=== PATIENT | male | born 1965 | race Two or more races ===

== ENCOUNTER 2017-08-21 05:49 | Inpatient (IN) | payer OTHER ==
[~2017-08-21] VITALS: Ht 165.1 cm; Wt 102.1 kg
[2017-08-21] VITALS (11 sets, daily range): BP systolic 97–133; BP diastolic 64–87
[~2017-08-21 05:49] MED LIST: NKM; ceFAZolin sod 2 GM in D5W 110 ML IVPB ONE
[2017-08-21] MEDS ORDERED: EPINEPHrine 1mg/1ml Amp ONE (07:08)
[2017-08-21] MEDS ORDERED: Bupivacaine 0.5% Inj 30 ml vial INJ ONE (07:09)
[2017-08-21] MEDS ORDERED: Thrombin 5000 units spray kit TOPIC ONE (07:09)
[2017-08-21] MEDS ORDERED: Thrombin 5000 units TOPIC ONE (07:09)
[2017-08-21] MEDS ORDERED: Gelfoam Absorbable 1gm powder pkt TOPIC ONE (07:09)
[2017-08-21] MEDS ORDERED: Bacitracin 50000 Units Vial ONE (07:10)
[2017-08-21] MEDS ORDERED: Midazolam 2mg/2ml Inj ONE (07:24)
[2017-08-21] MEDS ORDERED: fentaNYL 100 mcg/2 mL IV ONE (07:24)
[2017-08-21] MEDS ORDERED: Zemuron 50mg/5ml Inj IV ONE (07:38)
[2017-08-21] MEDS ORDERED: Sterile Water Irrig 1000ml IRRIG ONE (08:00)
[2017-08-21] MEDS ORDERED: NS Irrig 1000ml ONE (08:00)
[2017-08-21] MEDS ORDERED: Propofol 1,000mg/ 100ml btl IV ONE (08:00)
[2017-08-21] MEDS ORDERED: LR 1000ml 1,000 ML IVLG SCH (08:11)
--- NOTE | 2017-08-21 08:11 | Pre-Procedure Note/Attestation ---
Pre-Procedure Note/Attestation Complete Prior to Procedure Procedure Narrative: acdf c67 with uncovertebrectomy Indications for Procedure Pre-Operative Diagnosis: dicoscopathy and radiculopathy c67 Attestation I attest that I discussed the nature of the procedure; its benefits; risks and complications; and alternatives (and the risks and benefits of such alternatives ), prior to the procedure, with the patient (or the patient's legal lifeline representatives). I attest that, if there was a reasonable possibility of needing a blood transfusion, the patient (or the patient's legal lifeline representatives) was given the [facility] standardized written summary, pursuant to the Francisco Kori Blood Safety Act ([place] Health and Safety Code # 1645, as amended). I attest that I re-evaluated the patient just prior to the surgery and that there has been no change in the patient's H&P, except as documented below: CHEN CHOUDHURY August 21, 2017 08:11
[2017-08-21] MEDS ORDERED: Meperidine 50mg/ml Inj(FOR RIGORS ONLY) IVP PRN (08:15)
[2017-08-21] MEDS ORDERED: LR 1000ml 1,000 ML IV SCH (08:15)
[2017-08-21] MEDS ORDERED: LORazepam Inj 2mg/ml 1ml IV PRN (08:15)
[2017-08-21] MEDS ORDERED: DiphenhydrAMINE 50mg/ml Inj IVP PRN (08:15)
--- NOTE | 2017-08-21 10:19 | Brief Operative Note ---
Immediate Post Operative Note Operative Note Pre-op Diagnosis: dicoscopathy and radiculopathy c67 Procedure: c67 acdf, partial uncovertebrectomy L Post-op Diagnosis: same as pre-op Findings: consistent w/pre-op dx studies Surgeon: kaden Surgical Sales Representative: mary Anesthesiologist: jo-ann Anesthesia: general Specimen: yes - disc Complications: none Condition: stable Fluids: 800cc Estimated Blood Loss: none Drains: none Implant(s) used?: Yes - spinal elements crystal cage and NEXXT spine plate CHEN CHOUDHURY August 21, 2017 10:19
[2017-08-21] MEDS ORDERED: Metoclopramide 10mg/2ml Inj IVP PRN (10:30)
[2017-08-21] MEDS ORDERED: HYDROcodone/Acetamin 7.5/325 tab ORAL PRN ×2 (10:30)
[2017-08-21] MEDS ORDERED: Norco 5mg/325mg tab ORAL PRN (10:30)
--- NOTE | 2017-08-21 10:46 | Immediate Post-Op Evaluation ---
Immediate Post-Op Evalulation Immediate Post-Op Evalulation Procedure: ACDF C6-7 Date of Evaluation: August 21, 2017 Time of Evaluation: 10:50 IV Fluids: 800 Estimated Blood Loss: 25 Blood Pressure Systolic: 97 Blood Pressure Diastolic: 68 Pulse Rate: 89 Respiratory Rate: 14 O2 Sat by Pulse Oximetry: 97 Temperature (Fahrenheit): 98.8 Pain Score (1-10): 0 Nausea: No Vomiting: No Patient Status: reacts, patent, extubated, none Hydration Status: adequate Drug: Ancef Given Within 1 Hr of Incision: Yes Time Given: 08:20 rFancisco Adair MD August 21, 2017 10:46
--- NOTE | 2017-08-21 10:48 | Anethesia Preoperative Eval ---
Anesthesia Pre-op PMH/ROS General Date of Evaluation: August 21, 2017 Time of Evaluation: 08:05 Anesthesiologist: Mana ASA Score: ASA 2 Mallampati Score Class I : Soft palate, uvula, fauces, pillars visible Class II: Soft palate, uvula, fauces visible Class III: Soft palate, base of uvula visible Class IV: Only hard plate visible Mallampati Classification: Class II Surgeon: Heather Diagnosis: Cervical disc degeneration Surgical Procedure: ACDF C6-7 Family History: no anesthesia problems Allergies: Coded Allergies: No Known Allergies (Unverified , 08/20/17) Medications: see eMAR Past Medical History Cardiovascular: Denies: HTN, CAD, AK, valve dz, arrhythmia, other Pulmonary: Denies: asthma, COPD, MABEL, other Gastrointestinal/Genitourinary: Denies: GERD, CRI, ESRD, other Neurologic/Psychiatric: Denies: dementia, CVA, depression/anxiety, TIA, other Endocrine: Denies: DM, hypothyroidism, steroids, other HEENT: Denies: cataract (L), cataract (R), glaucoma, CHEVAK (L), CHEVAK (R), other Hematology/Immune: Denies: anemia, DVT, bleeding disorder, other Musculoskeletal/Integumentary: Denies: OA, RA, DJD, DDD, edema, other Other: obesity PMH Narrative: Mild obesity PSxH Narrative: Bilateral shoulder surgery, lumbar surgery Anesthesia Pre-op Phys. Exam Physician Exam Last Vital Signs Date Time Temp Pulse Resp B/P (MAP) Pulse Ox O2 Delivery O2 Flow Rate FiO2 08/21/17 07:11 98.6 98 20 133/87 98 Room Air 98.6 Constitutional: NAD Neurologic: CN 2-12 intact Cardiovascular: RRR, no M/R/G Respiratory: CTA Gastrointestinal: S/NT/ND Airway Exam Mallampati Score: Class III MO: full ROM: full Teeth: missing Anesthesia Pre-op A/P Labs WNL Studies Pre-op Studies: EKG - NSR, CXR - NAD Risk Assessment & Plan Assessment: Mildly obese male for ACDF Plan: GETA, [place]line Status Change Before Surgery: No Pre-Antibiotics Drug: Ancef Given Within 1 Hr of Incision: Yes Time Given: 08:40 Francisco Adair MD August 21, 2017 10:48
[2017-08-21] MEDS: Meperidine 50mg/ml Inj(FOR RIGORS ONLY) IVP SCH ×2 (11:42→13:35)
--- NOTE | 2017-08-21 15:27 | History and Physical ---
History of Present Illness General Date patient seen: August 21, 2017 Present Illness HPI 52 year old male with dicoscopathy and radiculopathy c67 is admitted for c67 acdf, partial vertebrectomy. Post-operatively pt is admitted to surgical floor for post-op care. Allergies: Coded Allergies: No Known Allergies (Unverified , 08/20/17) Medication History Scheduled No Known Medications* (NKM - No Known Medications*), 0 ., (Reported) Patient History Healthcare decision maker N Resuscitation status Full Code Advanced Directive on File No Review of Systems All Other Systems: negative except mentioned in HPI Physical Exam General Appearance: WD/WN Lines, tubes and drains: peripheral HEENT: normocephalic, anicteric Neck: non-tender, normal alignment Respiratory/Chest: chest wall non-tender, lungs clear Breasts: no masses Cardiovascular/Chest: normal peripheral pulses Abdomen: non tender Genitourinary/Rectal: normal genital exam Last 24 Hour Vital Signs Date Time Temp Pulse Resp B/P (MAP) Pulse Ox O2 Delivery O2 Flow Rate FiO2 08/21/17 13:36 97.9 08/21/17 12:20 90 15 120/83 97 Nasal Cannula 3.0 08/21/17 12:08 97.9 92 17 127/84 99 Nasal Cannula 3.0 97.9 08/21/17 11:45 94 15 125/86 99 Nasal Cannula 3.0 08/21/17 11:42 97.5 08/21/17 11:30 89 17 120/83 99 Nasal Cannula 3.0 08/21/17 11:20 95 14 122/85 99 Nasal Cannula 3.0 08/21/17 11:10 88 17 103/64 99 Nasal Cannula 3.0 08/21/17 11:00 90 15 100/66 99 Simple Mask 6.0 08/21/17 10:50 96 16 99/65 100 Simple Mask 6.0 08/21/17 10:46 209.8 89 14 97 08/21/17 10:40 97.8 89 14 97/68 97 Simple Mask 6.0 97.8 08/21/17 07:11 98.6 98 20 133/87 98 Room Air 98.6 Height (Feet): 5 Height (Inches): 5.00 Weight (Pounds): 225 Medications Current Medications Medications (Trade) Dose Ordered Sig/Chana Route PRN Reason Start Time Stop Time Status Last Admin Dose Admin Acetaminophen (Tylenol) 650 mg Q4H PRN ORAL headache or temp>101 08/21/17 10:30 09/20/17 10:29 Acetaminophen/ Hydrocodone Bitart ([place] 5/325) 1 tab Q3H PRN ORAL pain score 1-3 08/21/17 10:30 08/28/17 10:29 Acetaminophen/ Hydrocodone Bitart ([place] 7.5/325) 1 tab Q3H PRN ORAL pain score 4-6 08/21/17 10:30 08/28/17 10:29 Acetaminophen/ Hydrocodone Bitart ([place] 7.5/325) 2 tab Q3H PRN ORAL pain scale 7-10 08/21/17 10:30 08/28/17 10:29 Cefazolin Sodium 1 gm/Dextrose 55 ml @ 110 mls/hr EVERY 8 HOURS IV 08/21/17 16:00 08/22/17 06:29 Dextrose/Sodium Chloride 1,000 ml @ 100 mls/hr Q10H IV 08/21/17 14:30 09/20/17 14:29 Hydromorphone HCl (Dilaudid) 2 mg Q3H PRN SUBQ Severe Pain (Pain Scale 7-10) 08/21/17 10:30 08/28/17 10:29 Hydromorphone HCl (Dilaudid) 2 mg Q4H PRN SUBQ Moderate Pain (Pain Scale 4-6) 08/21/17 10:30 08/28/17 10:29 Metoclopramide HCl (Reglan) 10 mg Q6H PRN IVP Nausea & Vomiting 08/21/17 10:30 09/20/17 10:29 Temazepam (Restoril) 15 mg HSPRN PRN ORAL Insomnia 08/21/17 10:30 08/28/17 10:29 Assessment/Plan Problem List: (1) Disorder of intervertebral disc at C6-C7 level ICD Codes: M50.923 - Unspecified cervical disc disorder at C6-C7 level SNOMED: [id number] Assessment/Plan post op care symptomatic treatment pain management dvt prophylaxis Aida Contreras MD August 21, 2017 15:27
[2017-08-21] MEDS: D5 1/2NS 1,000 ML IV SCH (15:51)
[2017-08-21] MEDS: ceFAZolin sod 1 GM in D5W 55 ML IV SCH ×2 (16:57→21:41)
[2017-08-21] MEDS ORDERED: Tamsulosin 0.4mg cap ORAL SCH (18:30)
--- NOTE | 2017-08-21 18:30 | Operative Note - Dictated ---
DATE OF OPERATION: 08/21/2017 SURGEON: Don Romero M.D. BRAILLE CODER: Humberto Mosqueda M.D. ANESTHESIA: General endotracheal anesthesia. ANESTHESIOLOGIST: Francisco Adair M.D. PREOPERATIVE DIAGNOSIS: Cervical discopathy, C6-C7, with severe foraminal stenosis, left-sided, C6-C7. POSTOPERATIVE DIAGNOSIS: Cervical discopathy, C6-C7, with severe foraminal stenosis, left-sided, C6-C7. PROCEDURE: 1. Wide and radical discectomy and decompression of neural elements, C6-C7. 2. Partial uncal vertebrectomy, left side, C6-C7. 3. Interbody fusion using a Spinal Elements PEEK cage, Bacterin bone, local autograft, and [place] putty. 4. Anterior instrumentation using Nexxt Spine plate, 20 mm. 5. Use of operating microscope. 6. Neurodiagnostic monitoring. 7. Use of fluoroscopy for localization purposes as well as placement of hardware. RISK NOTE: The patient was explained in detail of the risks and benefits of surgery to include, but not be limited to those of bleeding, infection, damage to nerves, vessels, and tendons, anesthetic risk, allergic reaction, aspiration, and possibly . The patient understood, wished to proceed. INDICATIONS: The patient is a very pleasant gentleman with fairly significant and intractable pain in neck, radiating down the left upper extremity. He did get a good overall relief following pain management. However, the pain would consistently come back. For that reason, surgical intervention was recommended based on radiographic findings. OPERATIVE PROCEDURE IN DETAIL: The patient was taken to the operative suite after positive identification was made. He was positioned supine onto a radiolucent table. After general anesthesia was induced and the patient was intubated, Fletcher catheter was placed, arms were tucked, and a bolster placed under his neck. The chin was strapped back. The neck was prepped and draped in the usual sterile fashion. Under fluoroscopic guidance, the C6-C7 level was identified. A 1-1/2 inch incision was carried out on the right side in a transverse fashion after the patient received 4 mL of Marcaine with epinephrine. At this point, a 15 scalpel was used to incise the skin. The platysma was split perpendicular to the fibers. An interval medial to the sternocleidomastoid was developed, and blunt dissection was carried out to the prevertebral fascia. A needle was placed at the C6-C7 level and radiographically confirmed using fluoroscope. At this juncture, Edwardo posts were placed at C6 and C7. The disk was incised and gentle disc distraction was obtained. Then, operating microscope was brought into place and wide and radical diskectomy was performed. Endplate preparation was achieved. The dissection was carried out all the way to the posterior osteophytes. Posterior osteophytes were resected. Attention was then turned to the left lateral recess and with the use of a high-speed drill, uncal vertebrectomy was performed down to the area of the neural foramen. The posterior annulus was removed and the nerve root was freed. Dissection was carried out just to the extreme lip of the uncovertebral joints. The [place] #2 punch was then utilized to remove the posterior anulus and posterior longitudinal ligament. The spinal cord was exposed and noted to be patent. Copious irrigation was performed. An 8 mm interbody graft was chosen as it had perfect apposition. It was centrally packed with Bacterin bone, which had been soaking in antibiotic solution. Once the PEEK interbody device was inserted, the appropriate size plate was chosen. The anterior vertebral body was denuded off additional soft tissue. The anterior spurs were removed. A high-speed drill was used to decorticate the anterior cortex and the appropriate size 14 mm screws were then serially placed fluoroscopically being checked and noted to be in good position. AP and lateral positioning demonstrated excellent bony apposition under microscopic visualization. Meticulous hemostasis was achieved. A 1.5 mL of [place] putty was then placed into the periphery of the PEEK cage. At this point, decision was made to close. Platysma was repaired using 3-0 Vicryl. Subcutaneous closure using 4-0 Vicryl. Dermabond was applied and a sterile dressing. At the time of this dictation, the patient had been awakened, extubated, and transferred to recovery room in stable condition. Sponge and needle counts were correct. Don Romero M.D. DR: HEIKE JOB#: [id number] CC:
[2017-08-21] MEDS ORDERED: Chloraseptic Spray 20mL Bottle ORAL SCH (21:30)
[2017-08-21] MEDS ORDERED: Morphine Sulfate 4mg/ml Inj IM PRN (21:30)
[2017-08-21] MEDS ORDERED: HYDROcodone/Acetamin 10/325 tab ORAL PRN (21:30)
[2017-08-22] MEDS: D5 1/2NS 1,000 ML IV SCH (00:19)
[2017-08-22 00:25] VITALS: BP 127/77
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
[2017-08-22 04:00] VITALS: BP 130/83
[2017-08-22] MEDS: ceFAZolin sod 1 GM in D5W 55 ML IV SCH (06:01)
[2017-08-22 08:00] VITALS: BP 127/79
[2017-08-22] MEDS ORDERED: Docusate 100mg/10ml Liq NG SCH (09:00)
[2017-08-22] MEDS ORDERED: NORCO 10-325 T1 EACH ORAL (09:07)
--- NOTE | 2017-08-22 09:07 | Orthopedic Spine Progress Note ---
Ortho Spine - Progress Note Subjective Symptoms: c/o post-op neck pain, improved - as compared to pre-op Objective Vital Signs: Last 24 Hour Vital Signs Date Time Temp Pulse Resp B/P (MAP) Pulse Ox O2 Delivery O2 Flow Rate FiO2 08/22/17 08:00 98.5 94 20 127/79 97 Room Air 98.5 08/22/17 04:00 98.2 85 17 130/83 98 Nasal Cannula 3.0 98.2 08/22/17 00:25 98.8 83 17 127/77 99 Nasal Cannula 3.0 98.8 08/21/17 20:00 98.9 100 18 124/81 100 Nasal Cannula 3.0 98.9 08/21/17 18:13 97.9 08/21/17 17:14 97.9 08/21/17 13:36 97.9 08/21/17 12:20 90 15 120/83 97 Nasal Cannula 3.0 08/21/17 12:08 97.9 92 17 127/84 99 Nasal Cannula 3.0 97.9 08/21/17 11:45 94 15 125/86 99 Nasal Cannula 3.0 08/21/17 11:42 97.5 08/21/17 11:30 89 17 120/83 99 Nasal Cannula 3.0 08/21/17 11:20 95 14 122/85 99 Nasal Cannula 3.0 08/21/17 11:10 88 17 103/64 99 Nasal Cannula 3.0 08/21/17 11:00 90 15 100/66 99 Simple Mask 6.0 08/21/17 10:50 96 16 99/65 100 Simple Mask 6.0 08/21/17 10:46 209.8 89 14 97 08/21/17 10:40 97.8 89 14 97/68 97 Simple Mask 6.0 97.8 I&O: Intake and Output 08/21/17 08/22/17 19:00 07:00 Intake Total 595 ml 1555 ml Output Total 950 ml Balance 595 ml 605 ml Intake Oral 240 ml 500 ml IV Total 355 ml 1055 ml Output Urine Total 950 ml Wound: clean, intact Drains: none Neuro Status: normal Assessment Procedure Performed: c67 acdf, partial uncovertebrectomy L Plan Plan: PT, pain management, discharge to home CHEN CHOUDHURY August 22, 2017 09:07
--- NOTE | 2017-08-23 17:59 | Discharge Summary ---
Discharge Summary Hospital Course Date of Admission August 21, 2017 at 05:49 Date of Discharge August 22, 2017 at 09:30 Admitting Diagnosis HPI Isiah Mcneill is a 52 year old male who was admitted on August 21, 2017 at 05:49 for Cervical Disc Degeneration Of Cervical Region Hospital Course [id number] Discharge Discharge Disposition Patient was discharged to Home (01) Joy Man NP August 23, 2017 17:59
--- NOTE | 2017-08-23 20:00 | Discharge Summary 2 SIG ---
DATE OF ADMISSION: 08/21/2017 DATE OF DISCHARGE: 08/22/2017 CONSULTANTS: 1. Gregory Ibarra M.D. 2. Aida Contreras M.D. BRIEF HOSPITAL COURSE: The patient is a 52-year-old male with fairly significant and intractable pain in the neck radiating down to the left upper extremity. He did get good overall relief following pain management however the pain would consistently come back. He was admitted and underwent wide and radical diskectomy and decompression of neural elements on C6-C7. He tolerated procedure well and postoperatively was admitted for pain management. He was seen by Dr. Ibarra and was given [place] for pain. He was placed on SCDs for DVT prophylaxis. Diet was advanced. He was seen by physical therapy and occupational therapy and was ambulating well and had good pain control. He was encouraged use of incentive spirometry. He was eventually discharged home. FINAL DIAGNOSES: 1. Cervical diskopathy on C6-C7 with severe foraminal stenosis, left-sided C6-C7. 2. Status post wide and radical diskectomy and decompression of neural elements on C6-C7. 3. Partial uncal vertebrectomy, left side, C6-C7 for interbody fusion using a spinal elements, PEEK cage, bacterin bone, local autograft, and [place] putty (please refer to operative report). DISPOSITION: The patient was discharged home. DISCHARGE MEDICATIONS: Refer to medication list. DISCHARGE INSTRUCTIONS: Followup in a week. Don Romero M.D. I have been assigned to dictate discharge summary on this account and I was not involved in the patient's management. Joy Man N.P. DR: Ella JOB#: [id number] CC: LYNNE
--- NOTE | 2017-08-24 08:31 | 48 Hour Post Anesthesia Eval ---
Post Anesthesia Evaluation Procedure: ACDF C6-7 Date of Evaluation: August 29, 2017 Airway: patent Nausea: No Vomiting: No Pain Intensity: 0 Hydration Status: adequate Cardiopulmonary Status: at baseline Mental Status/LOC: patient returned to baseline Post-Anesthesia Complications: 0 Follow-up care needed: N/A - further care as per primary team DENISE RHOADES M.D. August 24, 2017 08:31
== END 2017-08-22 09:30 | disposition home or self-care (01) | DRG 473 ==
LOC: SDSOVERFLO 05:49 → 3E 14:31
PROC: 0RG10A0 Fusion of Cervical Vertebral Joint with Interbody Fusion Device, Anterior Approach, Anterior Column, Open Approach (ICD-10-PCS; principal; 2017-08-21 07:30)
PROC: 0RB30ZZ Excision of Cervical Vertebral Disc, Open Approach (ICD-10-PCS; principal; 2017-08-21 07:30)
PROC: 01N10ZZ Release Cervical Nerve, Open Approach (ICD-10-PCS; principal; 2017-08-21 07:30)
DX: M50.123 Cervical disc disorder at C6-C7 level with radiculopathy (principal); M48.02 Spinal stenosis, cervical region; V89.2XXS Person injured in unspecified motor-vehicle accident, traffic, sequela; E66.01 Morbid (severe) obesity due to excess calories; Z87.891 Personal history of nicotine dependence; G89.18 Other acute postprocedural pain
CPT/HCPCS: 36415; 72040; 76001; 86850; 86900; 86901; 87081; 94003; 94150; J2250; J2405